=== PATIENT | female | born 1980 | race African-American/Black ===

== ENCOUNTER 2019-05-31 14:50 | Emergency (ER) | payer OTHER ==
[~2019-05-31] VITALS: Ht 162.6 cm; Wt 76.2 kg
[2019-05-31 15:18] VITALS: BP 129/72
[2019-05-31 15:30] LABS: BASO # 0.1 x10^3/uL (0.0-0.2); BASO % 2 % (0-3); EOS # 0.2 x10^3/uL (0.0-0.7); EOS % 3 % (0-3); HEMATOCRIT 37.6 % (36.0-47.0); HEMOGLOBIN 12.9 g/dL (12.0-15.5); LYMPH # 3.6 x10^3/uL (1.0-4.8); LYMPH % 57 % (24-48); MEAN CORPUSCULAR HEMOGLOBIN 32 pg (25-35); MEAN CORPUSCULAR HGB CONC 34 g/dL (31-37); MEAN CORPUSCULAR VOLUME 94 fL (79-100); MONO # 0.4 x10^3/uL (0.0-1.1); MONO % 7 % (0-9); NEUT # 2.1 x10^3/uL (1.8-7.7); NEUT % 33 % (31-73); PLATELET COUNT 368 x10^3/uL (140-400); RED BLOOD COUNT 4.01 x10^6/uL (3.50-5.40); RED CELL DISTRIBUTION WIDTH 18.6 % (11.5-14.5); WHITE BLOOD COUNT 6.3 x10^3/uL (4.0-11.0)
[2019-05-31 15:42] LABS: CLARITY,URINE BLOODY; COLOR,URINE RED
[2019-05-31 15:43] LABS: RBC,URINE TNTC /HPF (0-2)
[2019-05-31 15:44] LABS: BACTERIA,URINE FEW /HPF (0-FEW); SQUAMOUS EPITHELIAL CELL,UR FEW /LPF; WBC,URINE OCC /HPF (0-4)
[2019-05-31 15:46] LABS: BARBITURATES NEG (NEG); BENZODIAZEPINES NEG (NEG); CANNABINOIDS POS (NEG); COCAINE POS (NEG); METHADONE NEG (NEG); OPIATES NEG (NEG); PHENCYCLIDINE NEG (NEG)
[2019-05-31 15:48] LABS: AMPHETAMINE/METHAMPHETAMINE NEG (NEG); CALCIUM 8.8 mg/dL (8.5-10.1); CREATININE 1.1 mg/dL (0.6-1.0); GFR 66.2; POTASSIUM 4.1 mmol/L (3.5-5.1)
[2019-05-31 15:51] LABS: ALBUMIN 3.9 g/dL (3.4-5.0); ALBUMIN/GLOBULIN RATIO 1.1 (1.0-1.7); TOTAL BILIRUBIN 0.1 mg/dL (0.2-1.0); TOTAL PROTEIN 7.6 g/dL (6.4-8.2)
--- NOTE | 2019-05-31 16:26 | PHYS DOC ---
Past Medical History Past Medical History: Anemia, Hypertension Additional Past Medical Histor: FIBROIDS Past Surgical History: Tubal ligation Alcohol Use: Occasionally Drug Use: Cocaine Adult General Chief Complaint Chief Complaint: ABDOMINAL PAIN HPI HPI Patient is a 39 year old female with history of fibroids, hypertension, who presents to the ED today complaining of vaginal bleeding as well as pelvic pain. Patient rates the pelvic pain as 10 out of 10 describes the pain as sharp and cramping. She states symptoms began in March with vaginal bleeding. She states she's been following up with her [employer] who has been trying her on some medication to help slow down the bleeding. She states today she felt the pain was more than normal. She states she has tried hydrocodone and ibuprofen with no relief. She states she felt she was soaking 1 feminine pad an hour since this morning. Denies any nausea, vomiting. She states she has an appointment with her [employer] next week and she cannot wait until then. Patient appears intoxicated. Review of Systems Review of Systems Constitutional: Denies fever or chills [] GI: Reports pelvic pain, and vag. bleeding. Denies nausea, vomiting, bloody stools or diarrhea [] : Denies dysuria or hematuria [] Musculoskeletal: Denies back pain or joint pain [] Integument: Denies rash or skin lesions [] Neurologic: Denies headache, focal weakness or sensory changes [] All other systems were reviewed and found to be within normal limits, except as documented in this note. Current Medications Current Medications Current Medications Medications (Trade) Dose Ordered Sig/[facility] Start Time Stop Time Status Last Admin Dose Admin Ketorolac Tromethamine (Toradol 30mg Vial) 30 mg 1X ONCE 05/31/19 16:45 05/31/19 16:47 DC Methylprednisolone Sodium Succinate (SOLU-Medrol 125MG VIAL) 125 mg 1X ONCE 05/31/19 16:45 05/31/19 16:47 DC Allergies Allergies Allergies Coded Allergies Type Severity Reaction Last Updated Verified No Known Drug Allergies 05/31/19 No Physical Exam Physical Exam Constitutional: Well developed, well nourished, no acute distress, non-toxic appearance. [] Abdomen: Bowel sounds normal, soft, no tenderness, no masses, no pulsatile masses. [] Pelvic exam External pelvis region appears normal, cervix not visualized, small amount of bright red blood noted in the vaginal vault, no CMT, no adnexal tenderness. Skin: Warm, dry, no erythema, no rash. [] Back: No tenderness, no CVA tenderness. [] Extremities: No tenderness, no cyanosis, no clubbing, ROM intact, no edema. [] Neurologic: Alert and oriented X 3, normal motor function, normal sensory function, no focal deficits noted. [] Psychologic: Patient appears intoxicated. Current Patient Data Vital Signs Vital Signs Date Time Temp Pulse Resp B/P (MAP) Pulse Ox O2 Delivery O2 Flow Rate FiO2 05/31/19 15:18 97.3 112 17 129/72 (91) 97 Room Air 97.3 Lab Values Laboratory Tests Test 05/31/19 15:20 White Blood Count 6.3 x10^3/uL (4.0-11.0) Red Blood Count 4.01 x10^6/uL (3.50-5.40) Hemoglobin 12.9 g/dL (12.0-15.5) Hematocrit 37.6 % (36.0-47.0) Mean Corpuscular Volume 94 fL (79-100) Mean Corpuscular Hemoglobin 32 pg (25-35) Mean Corpuscular Hemoglobin Concent 34 g/dL (31-37) Red Cell Distribution Width 18.6 % (11.5-14.5) H Platelet Count 368 x10^3/uL (140-400) Neutrophils (%) (Auto) 33 % (31-73) Lymphocytes (%) (Auto) 57 % (24-48) H Monocytes (%) (Auto) 7 % (0-9) Eosinophils (%) (Auto) 3 % (0-3) Basophils (%) (Auto) 2 % (0-3) Neutrophils # (Auto) 2.1 x10^3/uL (1.8-7.7) Lymphocytes # (Auto) 3.6 x10^3/uL (1.0-4.8) Monocytes # (Auto) 0.4 x10^3/uL (0.0-1.1) Eosinophils # (Auto) 0.2 x10^3/uL (0.0-0.7) Basophils # (Auto) 0.1 x10^3/uL (0.0-0.2) Platelet Estimate Pending Urine Collection Type Unknown Urine Color Red Urine Clarity Bloody Urine pH Urine Specific [place] Urine Protein mg/dL (NEG-TRACE) Urine Glucose (UA) mg/dL (NEG) Urine Ketones (Stick) mg/dL (NEG) Urine Blood (NEG) Urine Nitrite (NEG) Urine Bilirubin (NEG) Urine Urobilinogen Dipstick mg/dL (0.2 mg/dL) Urine Leukocyte Esterase (NEG) Urine RBC Tntc /HPF (0-2) Urine WBC Occ /HPF (0-4) Urine Squamous Epithelial Cells Few /LPF Urine Bacteria Few /HPF (0-FEW) Urine Mucus Slight /LPF Sodium Level 145 mmol/L (136-145) Potassium Level 4.1 mmol/L (3.5-5.1) Chloride Level 108 mmol/L (98-107) H Carbon Dioxide Level 26 mmol/L (21-32) Anion Gap 11 (6-14) Blood Urea Nitrogen 16 mg/dL (7-20) Creatinine 1.1 mg/dL (0.6-1.0) H Estimated GFR (Cockcroft-Gault) 66.2 BUN/Creatinine Ratio 15 (6-20) Glucose Level 107 mg/dL (70-99) H Calcium Level 8.8 mg/dL (8.5-10.1) Total Bilirubin 0.1 mg/dL (0.2-1.0) L Aspartate Amino Transferase (AST) 11 U/L (15-37) L Alanine Aminotransferase (ALT) 21 U/L (14-59) Alkaline Phosphatase 62 U/L (46-116) Total Protein 7.6 g/dL (6.4-8.2) Albumin 3.9 g/dL (3.4-5.0) Albumin/Globulin Ratio 1.1 (1.0-1.7) Urine Opiates Screen Neg (NEG) Urine Methadone Screen Neg (NEG) Urine Barbiturates Neg (NEG) Urine Phencyclidine Screen Neg (NEG) Urine Amphetamine/Methamphetamine Neg (NEG) Urine Benzodiazepines Screen Neg (NEG) Urine Cocaine Screen Pos (NEG) Urine Cannabinoids Screen Pos (NEG) Ethyl Alcohol Level 167 mg/dL (0-10) H Urine Ethyl Alcohol Pos (NEG) Laboratory Tests 05/31/19 15:20 Laboratory Tests 05/31/19 15:20 EKG EKG [] Radiology/Procedures Radiology/Procedures []PROCEDURE: PELVIS W/TV PELVIS W/TV Clinical Indication: Vaginal bleeding, history of fibroids. Menstruation since March 2019. History of benign endometrial biopsy. Comparison: None. TECHNIQUE: Real-time ultrasound imaging of the pelvis using transabdominal and transvaginal window is performed. Findings: Uterus measures 10.8 x 6 x 6.9 cm. Uterus appears myomatous. Individual fibroids are not measured by the grip wrapper. The endometrial stripe is abnormally thickened measuring 2.3 cm. The ovaries are similar in size and demonstrate normal blood flow. No evidence of adnexal mass. No cul-de-sac free fluid. IMPRESSION: 1. The endometrial stripe is abnormally thickened. Considerations include endometrial hyperplasia, polyp, or carcinoma. 2. Uterus appears myomatous. Electronically signed by: Ciro Smith MD (05/31/2019 4:23 PM) [id number] DICTATED and SIGNED BY: CIRO SMITH MD DATE: 05/31/19 1623 Course & Med Decision Making Course & Med Decision Making Pertinent Labs and Imaging studies reviewed. (See chart for details) This is a 39-year-old female patient presenting to the ED today with complaints of pelvic pain and vaginal bleeding since March that has gotten worse today patient follows up with [employer] and is being tried on medications to slow the bleeding down. She states the medications are not helping, she has an appointment with her [employer]ER next week but feels it is too far for her to wait. She appears intoxicated in the ED. CBC with a normal hemoglobin and hematocrit. CMP with no acute findings. Pelvic ultrasound- endometrial stripe is abnormally thickened. Considerations include endometrial hyperplasia, polyp, or carcinoma. Uterus appears myomatous. Patient has been in the ED for over 2 hours, she has not soaked even 1 feminine pad. She'll be discharged to home. Her drug screen was noted for alcohol, with alcohol level of 167, cocaine and marijuana She was discharged to home to follow-up with her [employer]. Dragon Disclaimer Dragon Disclaimer This electronic medical record was generated, in whole or in part, using a voice recognition dictation system. Departure Departure Impression: Primary Impression: Dysfunctional uterine bleeding Additional Impressions: Uterine myoma Cocaine use Marijuana abuse ETOH abuse Disposition: 01 HOME, SELF-CARE Condition: STABLE Referrals: UNKNOWN PCP NAME (PCP) Follow-up with your [employer] as soon as possible Patient Instructions: Alcohol Intoxication, Cocaine Abuse-Brief, Fibroids, [id number], Uterine Bleeding, Dysfunctional Additional Instructions: You were evaluated in the emergency room for vaginal bleeding, as discussed you need to follow-up with your own [employer]ER as soon as possible. Problem Qualifiers Additional Impressions: Uterine myoma Uterine leiomyoma location: unspecified location Qualified Codes: D25.9 - Leiomyoma of uterus, unspecified [place] [employer] May 31, 2019 16:26
[2019-05-31] MEDS ORDERED: methylPREDNISolone SOD SUCC PF 125 MG/2 ML VIAL. IV ONE (16:45)
[2019-05-31] MEDS ORDERED: KETOROLAC 30 MG/ML VIAL. IV ONE (16:45)
[2019-05-31 17:18] LABS: ANISOCYTOSIS SLIGHT; PLT ESTIMATE ADEQUATE (ADEQUATE)
== END 2019-05-31 17:20 | disposition home or self-care (01) ==
LOC: ER 14:50
DX: D25.9 Leiomyoma of uterus, unspecified (principal); N93.8 Other specified abnormal uterine and vaginal bleeding; F14.10 Cocaine abuse, uncomplicated; F12.10 Cannabis abuse, uncomplicated; F10.20 Alcohol dependence, uncomplicated; Y90.6 Blood alcohol level of 120-199 mg/100 ml
CPT/HCPCS: 36415; 76830; 76856; 80053; 80307; 81001; 85025; 99285; G0480